=== PATIENT | female | born 1995 | race African-American/Black ===

== ENCOUNTER 2023-09-18 20:32 | Emergency (ER) | payer OTHER ==
[~2023-09-18] VITALS: Ht 165.1 cm; Wt 122.5 kg
[2023-09-18] MEDS ORDERED: PANTOPRAZOLE 40 MG TABLET.DR PO ONE ×2 (22:30→23:44)
[2023-09-18 23:02] LABS: PREGNANCY TEST URINE QUAL NEGATIVE (NEGATIVE)
[2023-09-18] MEDS ORDERED: PANT40TA49 PO (23:52)
[2023-09-18 23:59] VITALS: BP 138/78; TEMP 98.4; O2SAT 99
== END 2023-09-18 23:59 | disposition home or self-care (01) ==
LOC: ER 20:39
DX: R07.89 Other chest pain (principal); R10.2 Pelvic and perineal pain
CPT/HCPCS: 71045-TC; 84703-TC